=== PATIENT | male | born 1955 | race Caucasian/White ===

== ENCOUNTER 2022-10-08 18:18 | Emergency (ER) | payer OTHER ==
[~2022-10-08] VITALS: Ht 182.9 cm; Wt 86.2 kg
--- NOTE | 2022-10-08 18:52 | NUR ---
TO ER BED 2, C/O COUGH X 3 WEEKS AND TREATED WITH ABX AT [facility]RGENT [facility]ARE,WENT BACK TODAY AND CXR SHOWED PLEURAL EFFUSION, AAOX3, BREATHING EVEN AND NON LABORED, CONNECTED TO MONITOR, AWAITING MD BELL
--- NOTE | 2022-10-08 19:40 | NUR ---
RECEIVED REPORT FROM ROSALIA MADRIGAL. PATIENT CAME INITIALLY D/T COUGH. PATIENT IS AAOX4. ABLE TO MAKE NEEDS KNOWN. PATIENT HAS IV CANNULA ON RIGHT AC G20. BLOOD WAS DRAWN AND SENT TO LAB. PATIENT HAS NO COMPLAINTS AT THE MOMENT. VITALS CHECKED.
[2022-10-08 20:28] LABS: BASOPHILS % (AUTO) 0.3 % (0.0-2.0); EOSINOPHILS % (AUTO) 1.7 % (0.0-6.0); HEMATOCRIT 41 % (39-51); HEMOGLOBIN 13.6 g/dL (13.5-17.5); LYMPHOCYTES # (AUTO) 0.9 K/uL (0.8-4.8); LYMPHOCYTES % (AUTO) 10.1 % (20.0-44.0); MEAN CORPUSCULAR HGB CONC 33 g/dl (31.0-36.0); MEAN CORPUSCULAR VOLUME 85 fL (80-96); MONOCYTES # (AUTO) 0.9 K/uL (0.1-1.30); MONOCYTES % (AUTO) 10.9 % (2.0-12.0); NEUTROPHILS # (AUTO) 6.7 K/uL (1.8-8.9); PLATELET COUNT (AUTO) 362 K/uL (150-450); WHITE BLOOD COUNT (AUTO) 8.7 K/uL (4.3-11.0)
[2022-10-08 20:43] LABS: CALCIUM, SERUM 9.7 mg/dL (8.5-10.1); CARBON DIOXIDE 28 mmol/L (21-32); CHLORIDE 102 mmol/L (98-107); CREATININE 1.1 mg/dL (0.6-1.3); GLUCOSE 117 mg/dL (74-106); POTASSIUM 3.9 mmol/L (3.5-5.1); SODIUM SERUM 137 mmol/L (136-145); UREA NITROGEN, BLOOD 12 mg/dL (7-18)
[2022-10-08 21:00] LABS: ALANINE AMINOTRANSFERASE 23 U/L (12-78); ALBUMIN 3.2 g/dL (3.4-5.0); ALKALINE PHOSPHATASE 104 U/L (46-116); ASPARTATE AMINOTRANSFERASE 16 U/L (15-37); BILIRUBIN,DIRECT 0.3 mg/dL (0.0-0.2); TOTAL PROTEIN, SERUM 6.9 g/dL (6.4-8.2)
--- NOTE | 2022-10-08 21:27 | NUR ---
COVID SWAB DONE AND SENT TO LAB
--- NOTE | 2022-10-08 21:32 | NUR ---
INFLUENZA SWAB DONE AND SENT TO LAB
[2022-10-08] MEDS ORDERED: IOHEXOL-300 100 ML VIAL IV ONE (22:49)
--- NOTE | 2022-10-09 05:15 | NUR ---
DR SURAJ LAGUNAS
--- NOTE | 2022-10-09 07:00 | NUR ---
SEEN BY DR BARBOSA AT BEDSIDE.
[2022-10-09] MEDS ORDERED: IBUP-23 PO (07:38)
[2022-10-09] MEDS ORDERED: GUAI100S11 PO (07:38)
[2022-10-09] MEDS ORDERED: ALBU18HF2 IH (07:38)
--- NOTE | 2022-10-09 08:33 | NUR ---
ADOLFO STAUFFER WILL CALL US BACK WHEN HAS MD APPOINTMENT SET UP FOR PT.
--- NOTE | 2022-10-09 11:33 | NUR ---
IV removed. Catheter intact and site benign. Pressure and 4x4 applied to site. No bleeding noted.
--- NOTE | 2022-10-09 11:34 | NUR ---
Patient discharged to home in stable condition. Written and verbal after care instructions given. Patient verbalizes understanding of instruction.
[2022-10-09 11:35] VITALS: BP 135/78
== END 2022-10-09 11:34 | disposition home or self-care (01) ==
LOC: ER 18:18
DX: R06.02 Shortness of breath (principal); N28.89 Other specified disorders of kidney and ureter; R91.8 Other nonspecific abnormal finding of lung field; I48.91 Unspecified atrial fibrillation; J90 Pleural effusion, not elsewhere classified; Z87.891 Personal history of nicotine dependence; E87.20 Acidosis, unspecified; Z20.822 Contact with and (suspected) exposure to COVID-19
CPT/HCPCS: 99285; 71260; 71045; 87426; 93005; 87804; 85025; 80048; 80076; 36415; 84484; 87081; 83880; Q9967; C9803